=== PATIENT | male | born 1995 ===

== ENCOUNTER 2017-08-08 08:25 | Emergency (ER) | payer OTHER ==
[2017-08-08 08:32] VITALS: RESP 20; BMI 23.6
--- NOTE | 2017-08-08 08:49 | ED PDOC ---
HPI: Psych/Substance Abuse Time Seen by Provider: 08/08/17 08:27 Chief Complaint (Provider): Medical Clearance History Per: Patient, EMS History/Exam Limitations: no limitations Onset/Duration Of Symptoms: Other ([employer]) Current Symptoms Are (Timing): Still Present Additional Complaint(s): 21 y/o male with no significant medical history brought to ED by EMS and [facility] for medical and psychiatric evaluation prior to incarceration. Patient denies consumption of EtOH or illicit substances. Also denies suicidal or homicidal ideations. Patient has no medical complaints at this time. Past Medical History Reviewed: Historical Data, Nursing Documentation, Vital Signs Vital Signs: Last Vital Signs Temp 97.8 F 08/08/17 08:32 Pulse 87 08/08/17 08:32 Resp 20 08/08/17 08:32 BP 136/54 L 08/08/17 08:32 Pulse Ox 99 08/08/17 08:32 - Medical History PMH: No Chronic Diseases - Surgical History Surgical History: No Surg Hx - Family History Family History: States: Unknown Family Hx - Social History Current smoker - smoking cessation education provided: No Alcohol: None Drugs: Denies - Home Medications Home Medications: Ambulatory Orders Medication Instructions Recorded No Known Home Med 07/04/17 - Allergies Allergies/Adverse Reactions: Allergies Allergy/AdvReac Type Severity Reaction Status Date / Time No Known Allergies Allergy Unverified 07/04/17 22:41 Review of Systems ROS Statement: Except As Marked, All Systems Reviewed And Found Negative Psych: Negative for: Suicidal ideation Physical Exam - Reviewed Nursing Documentation Reviewed: Yes Vital Signs Reviewed: Yes - Physical Exam Appears: Positive for: Non-toxic, No Acute Distress Head Exam: Positive for: ATRAUMATIC, NORMAL INSPECTION, NORMOCEPHALIC Skin: Positive for: Normal Color, Warm, DRY Eye Exam: Positive for: EOMI, Normal appearance, PERRL Neck: Positive for: Normal, Painless ROM, Supple Cardiovascular/Chest: Positive for: Regular Rate, Rhythm. Negative for: Murmur Respiratory: Positive for: Normal Breath Sounds. Negative for: Respiratory Distress Gastrointestinal/Abdominal: Positive for: Normal Exam, Soft. Negative for: Tenderness Back: Positive for: Normal Inspection Extremity: Positive for: Normal ROM. Negative for: Pedal Edema, Deformity Neurologic/Psych: Positive for: Alert, Oriented. Negative for: Motor/Sensory Deficits - ECG O2 Sat by Pulse Oximetry: 99 (RA) Pulse Ox Interpretation: Normal Medical Decision Making Medical Decision Makin:45 Plan --Crisis evaluation --Reevaluation Scribe Attestation: Documented by Ritesh Cochran, acting as a scribe for Micheal Mayer MD. Provider Scribe Attestation: All medical record entries made by the Scribe were at my direction and personally dictated by me. I have reviewed the chart and agree that the record accurately reflects my personal performance of the history, physical exam, medical decision making, and the department course for this patient. I have also personally directed, reviewed, and agree with the discharge instructions and disposition. Disposition - Clinical Impression Clinical Impression: Adjustment disorder - Patient ED Disposition Is Patient to be Admitted: No Counseled Patient/Family Regarding: Diagnosis, Need For Followup - Disposition Referrals: FAMILY PROVIDER,NO [Primary Care Provider] - Disposition: Discharged/Transfer to Law Enforcement Disposition Time: 10:26 Condition: FAIR Additional Instructions: Medically and psychiatrically stable for incarceration Instructions: Adjustment Disorder
[2017-08-08 12:08] VITALS: BP 138/67; PULSE 79; TEMP 97.7; O2SAT 98
== END 2017-08-08 11:00 ==
LOC: H.ER 08:25
DX: F43.20 Adjustment disorder, unspecified (principal)

== ENCOUNTER 2017-08-08 13:47 | Emergency (ER) | payer OTHER ==
[2017-08-08 13:48] VITALS: BMI 23.6
[2017-08-08 13:54] VITALS: TEMP 98.6
--- NOTE | 2017-08-08 14:02 | ED PDOC ---
HPI: General Adult Time Seen by Provider: 08/08/17 13:55 Chief Complaint (Nursing): Medical Clearance History Per: Other (Evaluated for medical and psychiatric clearance earlier today. After discharge while at police station, pt stated he wanted to kill himself because he could not speak with his sister and girlfriend. Has no specific plan.) Past Medical History Vital Signs: Last Vital Signs Temp 98.6 F 08/08/17 13:51 Pulse 89 08/08/17 13:51 Resp 20 08/08/17 13:51 BP 122/58 L 08/08/17 13:51 Pulse Ox 97 08/08/17 14:02 - Medical History PMH: Denies: Diabetes, Hepatitis, HIV, HTN, Seizures, Sexually Transmitted Disease - Family History Family History: States: Unknown Family Hx - Home Medications Home Medications: Ambulatory Orders Medication Instructions Recorded No Known Home Med 07/04/17 - Allergies Allergies/Adverse Reactions: Allergies Allergy/AdvReac Type Severity Reaction Status Date / Time No Known Allergies Allergy Verified 08/08/17 13:51 Review of Systems Psych: Positive for: Suicidal ideation Physical Exam - Physical Exam Cardiovascular/Chest: Positive for: Regular Rate, Rhythm Respiratory: Positive for: CNT, Normal Breath Sounds Extremity: Positive for: Normal ROM Neurologic/Psych: Positive for: Alert, Oriented - ECG O2 Sat by Pulse Oximetry: 97 Medical Decision Making Medical Decision Making: Reevaluated, states he just wants to speak with his sister and girlfriend but denies suicidal or homicidal ideation Disposition - Clinical Impression Clinical Impression: Adjustment disorder - Patient ED Disposition Is Patient to be Admitted: No Counseled Patient/Family Regarding: Diagnosis, Need For Followup - Disposition Disposition: Discharged/Transfer to Law Enforcement Disposition Time: 14:51 Condition: FAIR Additional Instructions: Medically and psychiatrically stable for discharge Instructions: Adjustment Disorder Forms: [employer] ([employer]) (Citizen [place])
[2017-08-08 15:01] VITALS: BP 128/82; PULSE 77; RESP 19; O2SAT 98
== END 2017-08-08 15:30 ==
LOC: H.ER 13:47
DX: F43.20 Adjustment disorder, unspecified (principal)